=== PATIENT | male | born 1985 | race African-American/Black ===

== ENCOUNTER 2017-05-21 12:27 | Emergency (ER) | payer OTHER ==
[~2017-05-21] VITALS: Ht 193 cm; Wt 100.0 kg
[2017-05-21] MEDS ORDERED: ASPI81TA85 PO (12:40)
[2017-05-21 14:58] VITALS: BP 103/65
--- NOTE | 2017-05-21 21:25 | ECGEPIP ---
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
== END 2017-05-21 14:59 | disposition home or self-care (01) ==
LOC: M ED 12:27
DX: R07.89 Other chest pain (principal); R51 Headache; J45.909 Unspecified asthma, uncomplicated; Z79.82 Long term (current) use of aspirin

== ENCOUNTER → 2018-08-28 | Outpatient (CLI) | payer OTHER | LOC: M SMT 07:55 | DX: M51.36 Other intervertebral disc degeneration, lumbar region (principal); M51.37 Other intervertebral disc degeneration, lumbosacral region; M41.24 Other idiopathic scoliosis, thoracic region; M54.5 Low back pain | CPT/HCPCS: 72072 ==

== ENCOUNTER 2020-03-12 17:22 | Emergency (ER) | payer BC, OTHER ==
[~2020-03-12] VITALS: Ht 182.9 cm; Wt 99.0 kg
[~2020-03-12 17:22] MED LIST: ASPI81TA85 PO
[2020-03-12] MEDS ORDERED: NS 1,000 ML IV SCH (17:36)
[2020-03-12] MEDS ORDERED: GI COCKTAIL 50ML BTL(HYOSCYAMINE/MAALOX/LIDOCAINE VISCOUS)(1:3:1) PO ONE (17:45)
[2020-03-12] MEDS ORDERED: PEPC1TAB5 PO (18:04)
[2020-03-12 18:10] LABS: BASO % 0.4 % (0.0-1.0); EOS # 0.1 10^3/uL (0.0-0.5); EOS % 1.5 % (0.0-3.0); HEMATOCRIT 38.3 % (42.0-52.0); HEMOGLOBIN 12.8 g/dl (13.5-17.5); LYMPH # 2.1 10^3/uL (1.5-5.0); LYMPH % 39.1 % (24.0-44.0); MEAN CORPUSCULAR HEMOGLOBIN 29.1 pg (27.0-33.0); MEAN CORPUSCULAR HGB CONC 33.4 g/dl (32.0-36.5); MONO # 0.4 10^3/uL (0.0-0.8); MONO % 8.4 % (0.0-5.0); NEUTROPHILS # 2.6 10^3/uL (1.5-8.5); NEUTROPHILS % 50.2 % (36.0-66.0); PLATELET COUNT, AUTOMATED 364 10^3/uL (150-450); WHITE BLOOD COUNT 5.2 10^3/uL (4.0-10.0)
[2020-03-12] MEDS ORDERED: SUCR1SS PO (18:12)
[2020-03-12] MEDS ORDERED: SUCRALFATE SUSP 1GM/10ML UD PO ONE (18:15)
[2020-03-12 18:30] LABS: ALBUMIN 3.6 GM/DL (3.2-5.2); ALT/SGPT 24 U/L (12-78); BILIRUBIN,DIRECT < 0.1 MG/DL (0.0-0.2); BILIRUBIN,TOTAL 0.2 MG/DL (0.2-1.0); LIPASE 160 U/L (73-393); TOTAL PROTEIN 7.3 GM/DL (6.4-8.2)
--- NOTE | 2020-03-12 18:42 | REPVR ---
PROCEDURE INFORMATION: Exam: US Abdomen, Limited; Right Upper Quadrant Exam date and time: 03/12/2020 6:34 PM Age: 34 years old Clinical indication: Abdominal pain; Localized; Right upper quadrant (ruq); Additional info: Ruq pain TECHNIQUE: Imaging protocol: US abdomen. Real time ultrasound with image documentation. Limited exam focused on the right upper quadrant. COMPARISON: GALLBLADDER US 09/29/2015 10:02 AM FINDINGS: Liver: Normal. No masses. Gallbladder: There are gallstones present. Minimal gallbladder wall thickening. Negative sonographic Corley sign. No ultrasound evidence of cholecystitis demonstrated. Common bile duct: The common bile duct measures five mm. No mass or choledocholithiasis. Pancreas: Visualized pancreas is unremarkable. Right kidney: Normal. No mass. No hydronephrosis. IMPRESSION: There are gallstones present. Minimal gallbladder wall thickening. Negative sonographic Corley sign. No ultrasound evidence of cholecystitis demonstrated. Clinical correlation to exclude cholecystitis suggested. Electronically signed by: Sergey Yu On 03/12/2020 18:41:59 PM
[2020-03-12 19:58] VITALS: BP 127/63
== END 2020-03-12 20:01 | disposition home or self-care (01) ==
LOC: M ED 17:22
DX: K80.50 Calculus of bile duct without cholangitis or cholecystitis without obstruction (principal); K29.70 Gastritis, unspecified, without bleeding; R10.9 Unspecified abdominal pain

== ENCOUNTER → 2021-03-10 | Outpatient (CLI) | payer BC ==
[~2021-03-10] MED LIST changes: -ASPI81TA85 PO; +ASPI81TA86 PO; +PEPC1TAB5 PO; +SUCR1SS PO
--- NOTE | 2021-03-10 12:59 | REPPI ---
INDICATION: R06.02 SHORTNESS OF BREATH. COMPARISON: No comparison chest x-ray. TECHNIQUE: Two views.. FINDINGS: The lungs are well inflated and free of infiltrate. The pleural angles are sharp. The heart size is normal. Pulmonary vasculature is not increased. No significant bony abnormality is seen. IMPRESSION: Negative chest x-ray. <Electronically signed by Aron Jim > 03/10/21 [id number]
--- NOTE | 2021-03-10 13:01 | REPPI ---
INDICATION: M54.5 LOW BACK PAIN. COMPARISON: Comparison radiographs of the lumbar spine are from August 28, 2018.. TECHNIQUE: Five views of the lumbar spine are provided. FINDINGS: Lumbar vertebral body heights are preserved. There is slight straightening. Alignment is otherwise normal. Disc spaces are maintained. Pedicles and posterior elements are intact. There is no evidence of spondylolysis or spondylolisthesis. Facets are unremarkable. Sacrum and SI joints are intact. There is stable bone island in the left iliac bone. Visualized bowel gas pattern is normal. Minimal discogenic spurring is again seen at L5-S1. IMPRESSION: Minimal discogenic spurring at L5-S1 again seen unchanged. Otherwise negative. <Electronically signed by Aron Jim > 03/10/21 [id number]
== END ==
LOC: M PLAIMG 12:06
PROVIDERS: ATTEND Physician Assistant
DX: R06.02 Shortness of breath (principal); M54.5 Low back pain; M46.06 Spinal enthesopathy, lumbar region

== ENCOUNTER → 2022-06-06 | Outpatient (CLI) | payer BC ==
[2022-06-06 13:43] LABS: FREE T4 0.77 NG/DL (0.76-1.46); TOTAL PROTEIN 8.1 GM/DL (6.4-8.2)
[2022-06-06 15:09] LABS: HEMOGLOBIN A1c 5.6 %
[2022-06-08 14:05] LABS: ALBUMIN 4.69 GM/DL (3.29-5.55); ALBUMIN % 57.9 % (55.8-66.1); ALPHA-1-GLOBULIN % 3.5 % (2.9-4.9); ALPHA-1-GLOBULINS 0.28 GM/DL (0.17-0.41); ALPHA-2-GLOBULINS 0.69 GM/DL (0.42-0.99); ALPHA-2-GLOBULINS % 8.5 % (7.1-11.8); BETA-1-GLOBULINS % 5.6 % (4.7-7.2); BETA-2-GLOBULINS % 5.6 % (3.2-6.5); GAMMA GLOBULIN % 18.9 % (11.1-18.8)
[2022-06-08 14:06] LABS: BETA-1-GLOBULINS 0.45 GM/DL (0.28-0.60); BETA-2-GLOBULINS 0.45 GM/DL (0.19-0.55); GAMMA GLOBULINS 1.53 GM/DL (0.65-1.58)
[2022-06-10 02:11] LABS: FOLATE 11.6 ng/mL (>3.0)
[2022-06-11 09:06] LABS: VITAMIN B12 LEVEL 699 PG/ML (247-911)
[2022-06-11 17:07] LABS: ANTINUCLEAR ANTIBODIES DIRECT Negative (Negative); VITAMIN B1 LEVEL WHOLE BLOOD 72.3 nmol/L (66.5-200.0); VITAMIN B6,PYRIDOXAL PHOSPHATE 14.2 ug/L (3.4-65.2); VITAMIN E(ALPHA TOCOPHEROL) 11.7 mg/L (5.9-19.4); VITAMIN E(GAMMA TOCOPHEROL) 2.1 mg/L (0.7-4.9)
== END ==
LOC: M LAB 11:28
PROVIDERS: ATTEND Psychiatry & Neurology Neurology
DX: E11.42 Type 2 diabetes mellitus with diabetic polyneuropathy (principal); E07.9 Disorder of thyroid, unspecified

== ENCOUNTER → 2023-04-25 | Outpatient (CLI) | payer BC | LOC: M WUC 09:31 | PROVIDERS: ATTEND Physician Assistant | DX: M25.562 Pain in left knee (principal); M54.16 Radiculopathy, lumbar region ==

== ENCOUNTER → 2023-06-20 | Outpatient (CLI) | payer BC, SELFPAY | LOC: M WHC 07:38 | PROVIDERS: ATTEND Physician Assistant | DX: R22.1 Localized swelling, mass and lump, neck (principal) ==

== ENCOUNTER → 2025-03-29 | Outpatient (CLI) | payer OTHER | LOC: M PLAIMG 06:59 | PROVIDERS: ATTEND Pain Medicine Interventional Pain Medicine | DX: M47.26 Other spondylosis with radiculopathy, lumbar region (principal) ==

== ENCOUNTER → 2025-09-15 | Outpatient (CLI) | payer OTHER | LOC: M RAD 15:55 | PROVIDERS: ATTEND Physician Assistant | DX: M25.512 Pain in left shoulder (principal) ==